=== PATIENT | male | born 1980 | race Caucasian/White ===

== ENCOUNTER 2016-09-27 15:48 | Emergency (ER) | payer OTHER ==
[~2016-09-27] VITALS: Ht 195.6 cm; Wt 126.7 kg
[~2016-09-27 15:48] MED LIST: GARL400T4 PO; MULT-506 PO; OMEG10007 PO
[2016-09-27 15:50] VITALS: BP 148/84; PULSE 72; TEMP 36.7; O2SAT 97; Ht 195.6 cm; Wt 126.7 kg
--- NOTE | 2016-09-27 16:16 | EMERGENCY ROOM VISIT NOTE ---
ED Visit Note First contact with patient: 15:55 CHIEF COMPLAINT: leg pain HISTORY OF PRESENT ILLNESS: This 36-year-old male patient presents to the emergency department ambulatory after sustaining an injury to the lower extremities. Complains of mild swelling and pain. The patient complains of pain along the right medial knee and left tib-fib. The patient states that he was working to help build a deck and he slipped off the joist and scraped his legs as he fell approximately 3 feet. He did not sustain any other injury and did not hit his head. The patient is able able to bear weight on the foot. Constant pain, worse with movement, weight bearing, and the dependent position. The patient reports several superficial abrasions. He states his tetanus is up-to-date. No numbness or weakness of the foot, no laceration. The patient has taken nothing for the pain. The patient denies any other injury. REVIEW OF SYSTEMS: A 6 system review of systems was completed with positives and pertinent negatives listed in the HPI. ALLERGIES: cashew MEDICATIONS: Celexa PMH: Patient denies SOCIAL HISTORY: The patient is employed. He lives locally PHYSICAL EXAM: Vital Signs: Reviewed Nurse's notes, vital signs stable. GENERAL : Is a 36-year-old male, no acute distress, but appears in pain, well-developed , well-nourished. MENTAL STATUS: Alert, oriented to person place and time, and cooperative. MUSCULOSKELETAL: There are several superficial abrasions and areas of ecchymosis over the bilateral lower extremities. There is mild tenderness to palpation and abrasion to the right medial aspect of the knee. There is no obvious instability. There is ecchymosis and abrasion over the left anterior tib-fib. There is no significant tenderness or swelling over the ankles or feet. There is no visual deformity. The foot and toes are warm and well-perfused. Dorsalis pedis pulse 2+. Sensation to pain and light touch is intact. Capillary refill less than 2 seconds. EMERGENCY DEPARTMENT COURSE: I examined the patient. X-rays of the right knee and left tib fib were reviewed by myself and read by radiology and reveal no fracture or dislocation. He was advised to apply ice and try tylenol/ ibuprofen. He should recheck with his family doctor or orthopedics if symptoms persist in 5-7 days. He should return with worsening symptoms/symptoms suggestive of compartment syndrome. The patient was discharged home in good condition. RIGHT KNEE 3 VIEWS CLINICAL HISTORY: right knee pain fall Right trauma. Pain. COMPARISON: None. DISCUSSION: The bones and joint spaces appear intact. There is no evidence of fracture, dislocation or bony disease. There is no evidence for soft tissue swelling. IMPRESSION: Negative study. LEFT TIBIA/FIBULA 2 VIEWS ROUTINE CLINICAL HISTORY: left leg pain, fall trauma. COMPARISON: None. DISCUSSION: The bones and joint spaces appear intact. There is no evidence of fracture, dislocation or bony disease. There is no evidence for soft tissue swelling. IMPRESSION: Negative study. DISCHARGE INSTRUCTIONS: Ice and elevation for 2 days. Ibuprofen, 600 mg or Tylenol 1000 mg every 6 hours if needed for pain. No more than 4 grams of tylenol in 24 hours; if you are taking ibuprofen several times a day or for several days you may want to take zantac or pepcid to help protect the stomach. See your doctor or an orthopedic surgeon if there is no improvement in 4 - 5 days. Problem List Medical Problems: (1) Acc-Cutting Instrum Nec Status: Resolved (2) Open Wound Of Finger Status: Resolved (3) Open Wound Of Hand Status: Resolved Current/Historical Medications Scheduled Atorvastatin (Lipitor), 20 MG PO DAILY Citalopram (Citalopram Hydrobromide), 1 TAB PO DAILY Multivitamin (Multivitamin), 1 TAB PO DAILY Allergies Coded Allergies: Cashew (Unverified Allergy, Mild, UNKNOWN, 09/27/16) Vital Signs Date Time Temp Pulse Resp B/P Pulse Ox O2 Delivery O2 Flow Rate FiO2 09/27/16 15:50 36.7 72 20 148/84 97 Room Air Departure Information Impression Primary Impression: Contusion of multiple sites Additional Impression: Abrasion Dispostion Home / Self-Care Condition GOOD Referrals Cesar Powers M.D. (PCP) Forms HOME CARE DOCUMENTATION FORM, IMPORTANT VISIT INFORMATION, Work Instructions Return To Work: 2 days Patient Instructions Bruises Contusions, ED Abrasion, ED Compartment Syndrome At Risk For, My [facility] Additional Instructions Ice and elevation for 2 days. Ibuprofen, 600 mg or Tylenol 1000 mg every 6 hours if needed for pain. No more than 4 grams of tylenol in 24 hours; if you are taking ibuprofen several times a day or for several days you may want to take zantac or pepcid to help protect the stomach. See your doctor or an orthopedic surgeon if there is no improvement in 4 - 5 days. Problem Qualifiers
--- NOTE | 2016-09-27 16:26 | DIAGNOSTIC IMAGING REPORT ---
LEFT TIBIA/FIBULA 2 VIEWS ROUTINE CLINICAL HISTORY: left leg pain, fall trauma. COMPARISON: None. DISCUSSION: The bones and joint spaces appear intact. There is no evidence of fracture, dislocation or bony disease. There is no evidence for soft tissue swelling. IMPRESSION: Negative study. Electronically signed by: Brian Leahy M.D. 09/27/2016 4:24 PM Dictated Date/Time: 09/27/2016 4:24 PM
--- NOTE | 2016-09-27 16:26 | DIAGNOSTIC IMAGING REPORT ---
RIGHT KNEE 3 VIEWS CLINICAL HISTORY: right knee pain fall Right trauma. Pain. COMPARISON: None. DISCUSSION: The bones and joint spaces appear intact. There is no evidence of fracture, dislocation or bony disease. There is no evidence for soft tissue swelling. IMPRESSION: Negative study. Electronically signed by: Brian Leahy M.D. 09/27/2016 4:25 PM Dictated Date/Time: 09/27/2016 4:25 PM
[2016-09-27] MEDS ORDERED: ATOR-22 PO (16:33)
[2016-09-27] MEDS ORDERED: CLX/20 PO (16:33)
== END 2016-09-27 16:57 | disposition home or self-care (01) ==
LOC: C.EDB 15:49 → C.EDD 16:57
DX: S80.812A Abrasion, left lower leg, initial encounter (principal); S80.211A Abrasion, right knee, initial encounter; W17.89XA Other fall from one level to another, initial encounter; W22.09XA Striking against other stationary object, initial encounter; Y93.89 Activity, other specified; Y92.89 Other specified places as the place of occurrence of the external cause; Z79.899 Other long term (current) drug therapy

== ENCOUNTER → 2016-10-22 | Outpatient (CLI) | payer OTHER ==
[~2016-10-22] MED LIST changes: +ATOR-22 PO; +CLX/20 PO; -GARL400T4 PO; -OMEG10007 PO
[2016-10-22 16:19] LABS: BLOOD UREA NITROGEN 17 mg/dl (7-18); BUN/CREATININE RATIO 17.6 (10-20); CALCIUM 8.8 mg/dl (8.5-10.1); CARBON DIOXIDE 29 mmol/L (21-32); CHLORIDE 105 mmol/L (98-107); CREATININE 0.99 mg/dl (0.60-1.40); GLUCOSE 82 mg/dl (70-99); POTASSIUM 3.8 mmol/L (3.5-5.1); SODIUM 141 mmol/L (136-145)
[2016-10-22 16:32] LABS: ALB/GLOB RATIO 1.2 (0.9-2); ALKALINE PHOSPHATASE 79 U/L (45-117); ALT/SGPT 42 U/L (12-78); AST/SGOT 21 U/L (15-37); CHOLESTEROL 140 mg/dl (0-200); CHOLESTEROL/HDL RATIO 3.8; HDL CHOLESTEROL 37 mg/dl; LDL CHOLESTEROL CALCULATED 40 mg/dl; TRIGLYCERIDES 314 mg/dl (0-150); VERY LOW DENSITY LIPOPROT CALC 63 mg/dl
[2016-10-23 06:34] LABS: ESTIMATED AVERAGE GLUCOSE 120 mg/dl; HA1C FLAG Normal (Normal)
== END | disposition home or self-care (01) ==
LOC: C.LAB 14:50
PROVIDERS: ATTEND Internal Medicine
DX: Z00.00 Encounter for general adult medical examination without abnormal findings (principal); E78.00 Pure hypercholesterolemia, unspecified; R73.01 Impaired fasting glucose

== ENCOUNTER → 2017-04-25 | Outpatient (CLI) | payer OTHER ==
[2017-04-25 17:33] LABS: ALT/SGPT 53 U/L (12-78); BLOOD UREA NITROGEN 18 mg/dl (7-18); BUN/CREATININE RATIO 15.7 (10-20); CALCIUM 8.6 mg/dl (8.5-10.1); CARBON DIOXIDE 26 mmol/L (21-32); CHLORIDE 107 mmol/L (98-107); CHOLESTEROL 144 mg/dl (0-200); CREATININE 1.16 mg/dl (0.60-1.40); GLUCOSE 103 mg/dl (70-99); POTASSIUM 3.8 mmol/L (3.5-5.1); SODIUM 138 mmol/L (136-145); TRIGLYCERIDES 226 mg/dl (0-150); VERY LOW DENSITY LIPOPROT CALC 45 mg/dl
[2017-04-25 17:35] LABS: ALB/GLOB RATIO 1.1 (0.9-2); ALKALINE PHOSPHATASE 73 U/L (45-117); AST/SGOT 32 U/L (15-37); CHOLESTEROL/HDL RATIO 3.9; HDL CHOLESTEROL 37 mg/dl; LDL CHOLESTEROL CALCULATED 62 mg/dl
[2017-04-26 06:58] LABS: ESTIMATED AVERAGE GLUCOSE 123 mg/dl; HA1C FLAG Normal (Normal)
== END | disposition home or self-care (01) ==
LOC: C.LABBFT 15:45
PROVIDERS: ATTEND Physician Assistant Medical
DX: E78.00 Pure hypercholesterolemia, unspecified (principal); R73.01 Impaired fasting glucose